=== PATIENT | female | born 1975 | race Two or more races ===

== ENCOUNTER 2021-08-02 00:04 | Emergency (ER) | payer SELFPAY ==
[~2021-08-02] VITALS: Ht 160 cm; Wt 70.3 kg
[2021-08-02 00:05] VITALS: BP 134/68
== END 2021-08-02 01:42 | disposition left against medical advice (07) ==
LOC: ER 00:04
DX: S09.90XA Unspecified injury of head, initial encounter (principal); Z53.21 Procedure and treatment not carried out due to patient leaving prior to being seen by health care provider; W19.XXXA Unspecified fall, initial encounter; Y93.89 Activity, other specified; Y92.89 Other specified places as the place of occurrence of the external cause; Y99.8 Other external cause status
CPT/HCPCS: 70450